=== PATIENT | female | born 1960 | race Caucasian/White ===

== ENCOUNTER 2023-11-24 11:15 | Outpatient (RCR) | payer OTHER, SELFPAY ==
[2023-11-19 11:45] VITALS: BP 138/60; PULSE 80; TEMP 37.1
[2023-11-19 11:49] VITALS: BMI 49.6
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
--- NOTE | 2023-11-20 12:52 | PC.NURSE ---
Elda stated she fell this morning at home and was not able to get up on her own and her fiance Uriah was not able to help her. She reports she called an ambulance as she could not get up again. Patient reports history of calling an ambulance when unable to get up. Reports EMT's advised her to go to rehab to build up her strength and mobility so she does not fall. Hx of going to [facility] in [place] inpatient physical rehabilitation in August 2023 however she stated they only worked with her 30 minutes a day and she needs more than that. Reports more difficultly standing up from her wheelchair and ambulating. She wants to work on body mechanics as she feels like she is getting weaker. We called Elda's primary care's office of [facility] and spoke to Shiela to have her set up a referral for Elda to a residential rehab program somewhere other than [place] to strengthen her body mechanics and ability to walk without falling. Reviewed aforementioned information with Shiela and history of requent falling and falling this morning and needing an ambualnce to help her to get up. Shiela stated she will call Elda with a referral to residential rehabilitation either today after 3pm when she is home or tomorrow after 3 pm.
--- NOTE | 2023-11-20 15:53 | HO.PHP ---
Client's case has been opened and reviewed in teams.
--- NOTE | 2023-11-25 09:34 | HO.PHP ---
[facility] admin, Alma, received a voicemail from Elda's partner Larry, stating that Elda will not be in program for today or the remainder of the week. It was unclear as to why, therefore, [facility] staff member contacted Elda and left a voicemail asking her to return her call. [facility] staff member did not receive a call back. [facility] staff member then reached out to Larry and was unable to leave a voicemail due to his mailbox being full. [facility] staff member will attempt to call at a later time.
--- NOTE | 2023-11-25 09:36 | HO.PHP ---
PHP staff member reached out to Elda's emergency Contact, Larry, who noted that Elda won't be able to returning to program for the remainder of the week. PHP staff member explored to why that is. Larry noted that Elda is in the hospital. PHP staff member asked for clarification around if it was for mental health or medical. Larry disclosed that Elda took a bad fall. PHP staff member was receptive and provided support to Larry. Larry voiced that he thinks Elda will also be going to rehab after this as well but they have still not received a call from when the referral was made. Larry noted that Elda was looking forward to completing the program. PHP staff member disclosed that Elda can still complete the program, she will just need to be discharged from her time here currently since she won't be returning due to being hospitalized and then possibly going to rehab after. PHP staff member disclosed that insurance won't allow for her to miss that many days in a row. PHP staff member voiced once she completes rehab and is able to address her mobility concerns, she can contact Alma and return to the program. PHP staff member voiced that we would love for Elda to return and be able to gain all that [facility] has to offer. Larry was receptive.
== END 2023-11-24 23:59 | disposition home or self-care (01) ==
LOC: HO.PHPA 11:15
PROVIDERS: Visit Provider Psychiatry & Neurology Psychiatry
DX: F33.3 Major depressive disorder, recurrent, severe with psychotic symptoms (principal)
CPT/HCPCS: 90791; 90853